=== PATIENT | male | born 1995 ===

== ENCOUNTER 2016-11-12 16:52 | Emergency (ER) | payer MEDICAID, OTHER ==
[2016-11-12 17:00] VITALS: TEMP 98.7; BMI 44.3
[2016-11-12] MEDS: Albuterol-Ipratrop 3 mg / 0.5 (3 ml) UD IH SCH ×6 (17:28→20:08)
--- NOTE | 2016-11-12 17:31 | ED PDOC ---
Arrival/HPI - General Chief Complaint: Cough, Cold, Congestion Time Seen by Provider: 11/12/16 17:04 Historian: Patient - History of Present Illness Narrative History of Present Illness (Text): 11/12/16 17:23 Patient with past medical history of asthma and is a smoker, complains of cough productive of sputum, reports yesterday he coughed which had a small tinge of blood, then today while at work was exposed to bleach which caused him to have dyspnea. Reports he has not had an asthma attack since he was a child and has no asthma medications to use at home or at work. Otherwise: (-) fever, (-) chills, (-) chest pain, (-) SOBa, (-) hemoptysis, (-) upper back pain, (-) travel, (-) recent prolonged immobility. PMD none Past Medical History - Provider Review Nursing Documentation Reviewed: Yes - Psychiatric Hx Substance Use: No - Surgical History Hx Tonsillectomy: Yes - Anesthesia Hx Anesthesia: Yes Hx Anesthesia Reactions: No Family/Social History - Physician Review Nursing Documentation Reviewed: Yes Family/Social History: No Known Family HX Smoking Status: Heavy Smoker > 10 Cigarettes Daily Hx Alcohol Use: Yes Hx Substance Use: No Allergies/Home Meds Allergies/Adverse Reactions: Allergies No Known Allergies Allergy (Verified 05/19/16 12:06) Review of Systems - Review of Systems Constitutional: Normal. absent: Fatigue, Weight Change, Fevers, Night Sweats ENT: Normal. absent: Hearing Changes, Tinnitus, Sore Throat, Rhinorrhea, Epistaxis Respiratory: Normal, Cough, Sputum. absent: SOB, Wheezing Cardiovascular: Normal. absent: Chest Pain, Palpitations, Edema Musculoskeletal: Normal. absent: Arthralgias, Back Pain, Neck Pain Skin: Normal. absent: Rash, Pruritis, Skin Lesions Physical Exam - Physical Exam Narrative Physical Exam (Text): 11/12/16 17:32 GENERAL APPEARANCE: Patient is awake, alert, oriented x 3, in no acute distress. Patient is speaking in full sentences, no accessory muscle use noted. SKIN: Warm, dry; (-) cyanosis. EYES: (-) conjunctival pallor. ENMT: Mucous membranes moist. Airway patent: (-) stridor. Pharynx: (-) swelling, (-) erythema. NECK: (-) tenderness, (-) stiffness, (-) lymphadenopathy. CHEST AND RESPIRATORY: (+) bilateral expiratory wheezing; (-) rales, (-) rhonchi, (-) rub; breath sounds equal bilaterally. HEART AND CARDIOVASCULAR: (-) irregularity; (-) murmur, (-) gallop. ABDOMEN AND GI: Soft; (-) tenderness. EXTREMITIES: (-) deformity, (-) edema. NEURO AND PSYCH: Mental status as above; (-) focal findings. Vital Signs Temp Pulse Resp BP Pulse Ox 11/12/16 19:09 96 H 18 152/72 H 100 11/12/16 17:34 103 H 16 100 11/12/16 16:57 98.7 F 132 H 16 154/74 H 96 Medical Decision Making ED Course and Treatment: 11/12/16 17:32 21 yo M with past medical history of asthma and is a smoker, presents with 5 day history of cough that is productive and today after exposure to bleach had an asthma attack. Plan: -CXR -Duonebs x3 -Prednisone 11/12/16 19:11 CXR: NAD, as read by PA On re-evaluation, the patient is sitting comfortably in bed in no acute distress. Patient is breathing normally, speaking in full sentences. Patient reports significant improvement of his symptoms. Denies any chest pain, shortness of breath. On exam, lungs (+) expiratory wheezing in the RLL, BS equal b/l. Anther 3 of duoneb ordered. 11/12/16 20:26 On second re-evaluation, the patient is laying in bed comfortably in bed in no acute distress. Patient still speaking in full sentences. Patient reports no chest pain, shortness of breath. On exam, lungs (-) wheezing, BS equal b/l. Based on history, exam and diagnostic results plan will be for patient follow- up with the clinic. Prescription provided. Patient states he fully agrees with and understands discharge instructions. States that he agrees with the plan and disposition. Verbalized and repeated discharge instructions and plan. I have given the patient opportunity to ask any additional questions. Follow up with the clinic in 1-2 days without fail. Advised to take medication as prescribed. Return to the emergency room at any time for any new or worsening symptoms. 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 Disposition/Present on Arrival - Present on Arrival Any Indicators Present on Arrival: No History of DVT/PE: No History of Uncontrolled Diabetes: No Urinary Catheter: No History of Decub. Ulcer: No History Surgical Site Infection Following: None - Disposition Have Diagnosis and Disposition been Completed?: Yes Diagnosis: Cough, Asthma Disposition: HOME/ ROUTINE Disposition Time: 20:28 Patient Plan: Discharge Condition: GOOD Discharge Instructions (ExitCare): Asthma (ED), Viral Syndrome (ED) Print Language: PUERT[place] R[place] Additional Instructions: Thank you for letting us take care of you today. You were treated for cough, asthma. The emergency medical care you received today was directed at your acute symptoms. If you were prescribed any medication, please fill it and take as directed. It may take several days for your symptoms to resolve. Return to the Emergency Department if your symptoms worsen, do not improve, or if you have any other problems. Please contact one of the physicians/clinics you have been referred to that are listed on the Patient Visit Information form that is included in your discharge packet. Bring any paperwork you were given at discharge with you along with any medications you are taking to your follow up visit. Our treatment cannot replace ongoing medical care by a primary care provider (PCP) outside of the emergency department. Thank you for allowing the [facility] team to be part of your care today. Prescriptions: Albuterol HFA [Ventolin HFA 90 mcg/actuation (8 g)] 2 puff IH [id number] #1 puff Albuterol 0.083% [Albuterol Sulfate 3 Ml] 3 ml IH Q4 #100 neb Guaifenesin 400 mg PO QID #20 tablet Nebulizer [Aeroeclipse] 1 each MC PRN PRN #1 each PRN Reason: Wheezing predniSONE [predniSONE Tab] 40 mg PO DAILY #8 tab Referrals: Megan Oden MD [Primary Care Provider] - Follow up with primary [facility] [place]] - Follow up with primary Forms: WORK NOTE
--- NOTE | 2016-11-12 18:42 | RAD ---
HISTORY: cough COMPARISON: None available. TECHNIQUE: Chest PA and lateral FINDINGS: Examination limited by habitus. LUNGS: No focal consolidation. Please note that chest x-ray has limited sensitivity for the detection of pulmonary masses. PLEURA: No significant pleural effusion identified. No definite pneumothorax . CARDIOVASCULAR: The cardiomediastinal silhouette appears within normal limits of size. OSSEOUS STRUCTURES: No acute osseous abnormality identified. VISUALIZED UPPER ABDOMEN: Mild elevation of the right hemidiaphragm. OTHER FINDINGS: None. IMPRESSION: No focal consolidation, significant pleural effusion, or definite pneumothorax identified.
[2016-11-12 20:49] VITALS: BP 145/66; PULSE 100; RESP 16; O2SAT 95
== END 2016-11-12 20:50 | disposition home or self-care (01) ==
LOC: ED 16:52
DX: J45.909 Unspecified asthma, uncomplicated (principal); R05 Cough; F17.210 Nicotine dependence, cigarettes, uncomplicated

== ENCOUNTER 2016-12-06 01:25 | Emergency (ER) | payer MEDICAID ==
[2016-12-06 01:28] VITALS: BMI 38.0
[2016-12-06 01:32] VITALS: TEMP 98.7
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
[2016-12-06] MEDS ORDERED: TDAP Vaccine 0.5 mL Syr IM ONE (02:06)
[2016-12-06 02:34] VITALS: BP 148/95; PULSE 99; RESP 17; O2SAT 99
--- NOTE | 2016-12-06 11:18 | RAD ---
PROCEDURE: Radiographs of Nasal Bones HISTORY: nasal pain COMPARISON: None available. TECHNIQUE: Frontal and lateral radiographs of the nasal bones. FINDINGS: No fracture of nasal bones visualized. No destructive lesion. IMPRESSION: No nasal bone fracture visualized.
== END 2016-12-06 02:36 | disposition home or self-care (01) ==
LOC: ED 01:25
DX: S01.21XA Laceration without foreign body of nose, initial encounter (principal); W22.8XXA Striking against or struck by other objects, initial encounter; Y93.89 Activity, other specified; Y92.69 Other specified industrial and construction area as the place of occurrence of the external cause; Y99.8 Other external cause status; Z23 Encounter for immunization